=== PATIENT | male | born 1980 | race Caucasian/White ===

== ENCOUNTER 2020-04-16 13:30 | Emergency (ER) | payer OTHER ==
[~2020-04-16] VITALS: Ht 175.3 cm; Wt 85.0 kg
[2020-04-16 14:15] LABS: BASO # 0.1 x10^3/uL (0.0-0.2); BASO % 1 % (0-3); EOS # 0.1 x10^3/uL (0.0-0.7); EOS % 2 % (0-3); HEMATOCRIT 43.7 % (39.0-53.0); HEMOGLOBIN 14.6 g/dL (13.0-17.5); LYMPH # 1.5 x10^3/uL (1.0-4.8); LYMPH % 24 % (24-48); MEAN CORPUSCULAR HEMOGLOBIN 27 pg (25-35); MEAN CORPUSCULAR HGB CONC 34 g/dL (31-37); MEAN CORPUSCULAR VOLUME 82 fL (79-100); MONO # 0.9 x10^3/uL (0.0-1.1); MONO % 14 % (0-9); NEUT # 3.8 x10^3/uL (1.8-7.7); NEUT % 59 % (31-73); PLATELET COUNT 259 x10^3/uL (140-400); RED BLOOD COUNT 5.33 x10^6/uL (4.30-5.70); WHITE BLOOD COUNT 6.3 x10^3/uL (4.0-11.0)
[2020-04-16 14:24] LABS: PROTHROMBIN TIME PATIENT 12.9 SEC (11.7-14.0)
--- NOTE | 2020-04-16 14:26 | RAD ---
EXAM: PORTABLE CHEST 1V 04/16/2020 2:04 PM CLINICAL INDICATION:Right-sided numbness COMPARISON:None TECHNIQUE:AP upright view of the chest. FINDINGS:The heart and mediastinum are normal. Lungs are well-expanded and clear. No consolidation, pleural effusion, or pneumothorax. No pulmonary edema. No acute osseous abnormality. IMPRESSION: Normal chest radiograph. Electronically signed by: Kavita Bowman MD (04/16/2020 2:23 PM) [id number]
[2020-04-16 14:27] LABS: CALCIUM 9.5 mg/dL (8.5-10.1); CREATININE 1.2 mg/dL (0.7-1.3); GFR 67.8; POTASSIUM 4.2 mmol/L (3.5-5.1)
[2020-04-16 14:32] LABS: ALBUMIN 4.2 g/dL (3.4-5.0); ALBUMIN/GLOBULIN RATIO 1.1 (1.0-1.7); TOTAL BILIRUBIN 0.3 mg/dL (0.2-1.0); TOTAL PROTEIN 7.9 g/dL (6.4-8.2)
--- NOTE | 2020-04-16 14:35 | EKG ---
[facility] [address] [place] [address] Test Date: 2020-04-16 Test Time: 13:45:30 Pat Name: KENISHA AVILA Department: Room: Gender: M Senior Solutions Engineer: : 1980 Requested By: ROSE MARY MICHEL Order Number: [id number] Reading MD: Saul Weston MD Measurements Intervals [place] Rate: 70 P: AL: QRS: 51 QRSD: 96 T: 53 QT: 350 QTc: 380 Interpretive Statements SR Electronically Signed On 04-17-2020 14:41:23 CDT by Saul Weston MD
--- NOTE | 2020-04-16 15:04 | RAD ---
CT HEAD WO CONTRAST Date: 04/16/2020 2:04 PM Clinical Indication: Reason: right sided numbness Comparison: None. Technique: 5 mm axial tomographic images were obtained of the head without contrast. These were viewed on brain and bone windows. One or more of the following dose reduction techniques were utilized: Automated exposure control (AEC), Adjustment of mA and/or kV according to patient size, Use of iterative reconstruction technique such as ASiR, CT scan done according to ALARA and image gently/image wisely Findings: The brain parenchyma is normal in attenuation. No intra- or extra-axial mass or fluid collection. No acute hemorrhage. The ventricles are normal in size, shape, and morphology. The vital-white matter junction is normal. The subarachnoid cisterns are patent. The visualized paranasal sinuses are normal. The visualized portions of the orbits and globes are normal. The mastoid air cells are clear. The assembler sandal parts topogram shows no lytic lesion or fracture. Impression: No acute intracranial process. Electronically signed by: Graham Yan MD (04/16/2020 3:01 PM) [id number]
[2020-04-16 15:13] LABS: BILIRUBIN,URINE NEGATIVE (NEG); CLARITY,URINE CLEAR; COLOR,URINE YELLOW; NITRITE,URINE NEGATIVE (NEG); PROTEIN,URINE NEGATIVE (NEG-TRACE); UROBILINOGEN,URINE 0.2 mg/dL (0.2 mg/dL)
[2020-04-16 15:18] LABS: BACTERIA,URINE 0 /HPF (0-FEW); RBC,URINE 0 /HPF (0-2); WBC,URINE 0 /HPF (0-4)
[2020-04-16 15:19] LABS: BARBITURATES NEG (NEG); BENZODIAZEPINES NEG (NEG); CANNABINOIDS NEG (NEG); COCAINE NEG (NEG); METHADONE NEG (NEG); OPIATES NEG (NEG); PHENCYCLIDINE NEG (NEG)
[2020-04-16 15:21] LABS: AMPHETAMINE/METHAMPHETAMINE NEG (NEG)
[2020-04-16] MEDS ORDERED: methylPREDNISolone SOD SUCC PF 125 MG/2 ML VIAL. IV ONE (15:45)
[2020-04-16] MEDS ORDERED: ACYCLOVIR 200 MG CAPSULE. PO SCH (15:45)
[2020-04-16] MEDS ORDERED: POLY15DR27 RIGHTEYE (16:02)
[2020-04-16] MEDS ORDERED: PRED-220 PO (16:02)
[2020-04-16] MEDS ORDERED: ACYC400T PO (16:02)
--- NOTE | 2020-04-16 16:02 | PHYS DOC ---
Past Medical History Past Medical History: No Pertinent History Past Surgical History: Other Additional Past Surgical Histo: L hand surgery Smoking Status: Never Smoker Alcohol Use: None General Adult EDM: Chief Complaint: NEURO SYMPTOMS/DEFICITS HPI: HPI: Patient is a 39 year old male with no significant medical history currently at [facility] who presents to the ED today complaining of right facial droop. Patient reports approximately 3 days ago he developed a mild right-sided intermittent throbbing headache, he states eventually the headache became constant today. He states this morning he was having breakfast and he noted the right side of his face was not feeling right he does not know the exact time. He states he decided to go back and take a nap, he does not remember how long he slept but when he woke up to brush his teeth he felt water was running the right side of the mouth due to drooling. Patient states his right ear was also ringing. He states he has no recollection if he has had any coughing or congestion. He is currently being guarded with 2 correctional officers. Review of Systems: Review of Systems: Constitutional: Denies fever or chills. [] Eyes: Denies change in visual acuity. [] HENT: Denies nasal congestion or sore throat. [] Respiratory: Denies cough or shortness of breath. [] Cardiovascular: Denies chest pain or edema. [] GI: Denies abdominal pain, nausea, vomiting, bloody stools or diarrhea. [] : Denies dysuria. [] Musculoskeletal: Denies back pain or joint pain. [] Integument: Denies rash. [] Neurologic: Reports headache and right facial drop. Denies focal weakness or sensory changes. [] Endocrine: Denies polyuria or polydipsia. [] Lymphatic: Denies swollen glands. [] Psychiatric: Denies depression or anxiety. [] Heart Score: Risk Factors: Risk Factors: DM, Current or recent (<one month) smoker, HTN, HLP, family history of CAD, obesity. Risk Scores: Score 0 - 3: 2.5% MACE over next 6 weeks - Discharge Home Score 4 - 6: 20.3% MACE over next 6 weeks - Admit for Clinical Observation Score 7 - 10: 72.7% MACE over next 6 weeks - Early Invasive Strategies Current Medications: Current Medications Medications (Trade) Dose Ordered Sig/Kenzie Start Time Stop Time Status Last Admin Dose Admin Acyclovir (Zovirax) 800 mg 1X 04/16/20 15:45 UNV Methylprednisolone Sodium Succinate (SOLU-Medrol 125MG VIAL) 125 mg 1X ONCE 04/16/20 15:45 04/16/20 15:46 UNV Physical Exam: PE: Constitutional: Well developed, well nourished, no acute distress, non-toxic appearance. [] HENT: Normocephalic, atraumatic, bilateral external ears normal, oropharynx moist, no oral exudates, nose normal. [] Eyes: PERRLA, EOMI, conjunctiva normal, no discharge. [] Neck: Normal range of motion, no tenderness, supple, no stridor. [] Cardiovascular:Heart rate regular rhythm, no murmur [] Lungs & Thorax: Bilateral breath sounds clear to auscultation [] Abdomen: Bowel sounds normal, soft, no tenderness, no masses, no pulsatile masses. [] Skin: Warm, dry, no erythema, no rash. [] Back: No tenderness, no CVA tenderness. [] Extremities: No tenderness, no cyanosis, no clubbing, ROM intact, no edema. [] Neurologic: Alert and oriented X 3, normal motor function, normal sensory function, no focal deficits noted. Cranial nerves II through XII intact. Slightly decreased sensation to the right cheek. Psychologic: Affect normal, judgement normal, mood normal. [] Current Patient Data: Labs: Laboratory Tests Test 04/16/20 13:41 04/16/20 13:47 04/16/20 15:02 Glucose (Fingerstick) 61 mg/dL (70-99) L White Blood Count 6.3 x10^3/uL (4.0-11.0) Red Blood Count 5.33 x10^6/uL (4.30-5.70) Hemoglobin 14.6 g/dL (13.0-17.5) Hematocrit 43.7 % (39.0-53.0) Mean Corpuscular Volume 82 fL (79-100) Mean Corpuscular Hemoglobin 27 pg (25-35) Mean Corpuscular Hemoglobin Concent 34 g/dL (31-37) Red Cell Distribution Width 15.0 % (11.5-14.5) H Platelet Count 259 x10^3/uL (140-400) Neutrophils (%) (Auto) 59 % (31-73) Lymphocytes (%) (Auto) 24 % (24-48) Monocytes (%) (Auto) 14 % (0-9) H Eosinophils (%) (Auto) 2 % (0-3) Basophils (%) (Auto) 1 % (0-3) Neutrophils # (Auto) 3.8 x10^3/uL (1.8-7.7) Lymphocytes # (Auto) 1.5 x10^3/uL (1.0-4.8) Monocytes # (Auto) 0.9 x10^3/uL (0.0-1.1) Eosinophils # (Auto) 0.1 x10^3/uL (0.0-0.7) Basophils # (Auto) 0.1 x10^3/uL (0.0-0.2) Prothrombin Time 12.9 SEC (11.7-14.0) Prothrombin Time INR 1.0 (0.8-1.1) Activated Partial Thromboplast Time 27 SEC (24-38) Sodium Level 139 mmol/L (136-145) Potassium Level 4.2 mmol/L (3.5-5.1) Chloride Level 100 mmol/L (98-107) Carbon Dioxide Level 32 mmol/L (21-32) Anion Gap 7 (6-14) Blood Urea Nitrogen 11 mg/dL (8-26) Creatinine 1.2 mg/dL (0.7-1.3) Estimated GFR (Cockcroft-Gault) 67.8 BUN/Creatinine Ratio 9 (6-20) Glucose Level 99 mg/dL (70-99) Calcium Level 9.5 mg/dL (8.5-10.1) Magnesium Level 2.0 mg/dL (1.8-2.4) Total Bilirubin 0.3 mg/dL (0.2-1.0) Aspartate Amino Transferase (AST) 22 U/L (15-37) Alanine Aminotransferase (ALT) 52 U/L (16-63) Alkaline Phosphatase 72 U/L (46-116) Creatine Kinase 380 U/L (39-308) H Creatine Kinase MB (Mass) 0.9 ng/mL (0.0-3.6) Creatine Kinase MB Relative Index 0.2 % (0-4) Troponin I Quantitative < 0.017 ng/mL (0.000-0.055) VB-Uug-A-Type Natriuretic Peptide 9 pg/mL (0-124) Total Protein 7.9 g/dL (6.4-8.2) Albumin 4.2 g/dL (3.4-5.0) Albumin/Globulin Ratio 1.1 (1.0-1.7) Thyroid Stimulating Hormone (TSH) 0.881 uIU/mL (0.358-3.74) Urine Collection Type Unknown Urine Color Yellow Urine Clarity Clear Urine pH 6.0 (<5.0-8.0) Urine Specific Jal 1.010 (1.000-1.030) Urine Protein Negative mg/dL (NEG-TRACE) Urine Glucose (UA) Negative mg/dL (NEG) Urine Ketones (Stick) Negative mg/dL (NEG) Urine Blood Negative (NEG) Urine Nitrite Negative (NEG) Urine Bilirubin Negative (NEG) Urine Urobilinogen Dipstick 0.2 mg/dL (0.2 mg/dL) Urine Leukocyte Esterase Negative (NEG) Urine RBC 0 /HPF (0-2) Urine WBC 0 /HPF (0-4) Urine Bacteria 0 /HPF (0-FEW) Urine Opiates Screen Neg (NEG) Urine Methadone Screen Neg (NEG) Urine Barbiturates Neg (NEG) Urine Phencyclidine Screen Neg (NEG) Urine Amphetamine/Methamphetamine Neg (NEG) Urine Benzodiazepines Screen Neg (NEG) Urine Cocaine Screen Neg (NEG) Urine Cannabinoids Screen Neg (NEG) Urine Ethyl Alcohol Neg (NEG) Laboratory Tests 04/16/20 13:47 Laboratory Tests 04/16/20 13:47 Vital Signs: Vital Signs Date Time Temp Pulse Resp B/P (MAP) Pulse Ox O2 Delivery O2 Flow Rate FiO2 04/16/20 13:40 98.9 87 16 138/86 (103) 98 Room Air 98.9 EKG: EKG: [] Radiology/Procedures: Radiology/Procedures: []PROCEDURE: PORTABLE CHEST 1V EXAM: PORTABLE CHEST 1V 04/16/2020 2:04 PM CLINICAL INDICATION:Right-sided numbness COMPARISON:None TECHNIQUE:AP upright view of the chest. FINDINGS:The heart and mediastinum are normal. Lungs are well-expanded and clear. No consolidation, pleural effusion, or pneumothorax. No pulmonary edema. No acute osseous abnormality. IMPRESSION: Normal chest radiograph. Electronically signed by: Kavita Bowman MD (04/16/2020 2:23 PM) [id number] DICTATED and SIGNED BY: KAVITA BOWMAN MD DATE: 04/16/20 1423 PROCEDURE: CT HEAD WO CONTRAST CT HEAD WO CONTRAST Date: 04/16/2020 2:04 PM Clinical Indication: Reason: right sided numbness Comparison: None. Technique: 5 mm axial tomographic images were obtained of the head without contrast. These were viewed on brain and bone windows. One or more of the following dose reduction techniques were utilized: Automated exposure control (AEC), Adjustment of mA and/or kV according to patient size, Use of iterative reconstruction technique such as ASiR, CT scan done according to ALARA and image gently/image wisely Findings: The brain parenchyma is normal in attenuation. No intra- or extra-axial mass or fluid collection. No acute hemorrhage. The ventricles are normal in size, shape, and morphology. The vital-white matter junction is normal. The subarachnoid cisterns are patent. The visualized paranasal sinuses are normal. The visualized portions of the orbits and globes are normal. The mastoid air cells are clear. The log sawyer topogram shows no lytic lesion or fracture. Impression: No acute intracranial process. Electronically signed by: Randall Yan MD (04/16/2020 3:01 PM) [id number] DICTATED and SIGNED BY: RANDALL YAN MD DATE: 04/16/20 1501 Course & Med Decision Making: Course & Med Decision Making Pertinent Labs and Imaging studies reviewed. (See chart for details) This is a 39-year-old male patient presenting to the ED today from [facility] complaining of facial droop to the right that began at unknown time this morning. Also complaining of a headache for [address] of the head is negative. Stroke scale is 2. Labs are negative for any acute findings, blood pressure is good. 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 He tolerated the swallow study. He was given Solu-Medrol in the ED and acyclovir. Discharged on prednisone, acyclovir and artificial tears. F/u with neurology in the course of this week Amilcar Disclaimer: Amilcar Disclaimer: This electronic medical record was generated, in whole or in part, using a voice recognition dictation system. NIHSS Stroke Scale NIH Stroke Scale: NIH Stroke Scale Response (Comments) Value Level of Consciousness: 0 Alert/Responsive 0 LOC Questions: 0 Answers both correctly 0 Best Gaze: 0 Normal 0 Visual: 0 No visual loss 0 Facial Palsy: 2 Partial paralysis 2 Motor - Left Arm 0 No drift 0 Motor - Right Arm 0 No drift 0 Motor - Left Leg 0 No drift 0 Motor: Right Leg 0 No drift 0 Limb Ataxia: 0 Absent 0 Sensory: 0 No loss 0 Best Language: 0 Normal 0 Dysathria: 0 Normal 0 Total 2 Departure Departure Impression: Primary Impression: Ly palsy Disposition: HOME, SELF-CARE Condition: STABLE Referrals: NO PCP (PCP) NICHOLAS DUARTE MD follow up in 1 week Patient Instructions: Ly's Palsy Additional Instructions: Your CAT scan of the head is negative for any acute findings, your symptoms are more in line with Ly's palsy. Take the prescribed medications as ordered. Follow-up with the provided neurologist and your primary care doctor in the next 7 days. Scripts Polyvinyl Alcohol (ARTIFICIAL TEARS) 15 Ml Drops 1 DROP RIGHTEYE QID, #15 ML 0 Refills Prov: ROSE MARY MICHEL APRN 04/16/20 Acyclovir (ACYCLOVIR) 400 Mg Tablet 1 TAB PO 5XDAY, #50 TAB 3 Refills Prov: ROSE MARY MICHEL APRN 04/16/20 Prednisone (PREDNISONE ) 10 Mg Tablet 1 TAB PO DAILY, #10 TAB 0 Refills 60mg daily for 5 days then 25 mg BID for 10 days Prov: ROSE MARY MICHEL APRN 04/16/20 ROSE MARY MICHEL APRN April 16, 2020 16:02
[2020-04-16 16:34] VITALS: BP 146/70
== END 2020-04-16 16:57 | disposition home or self-care (01) ==
LOC: EEVIPCON 13:30 → ER 13:30
DX: G51.0 Bell's palsy (principal)
CPT/HCPCS: 36415; 70450; 71045; 80053; 80307; 81001; 82553; 82962; 83735; 83880; 84443; 84484; 85025; 85027; 85610; 85730; 93005; 96374; 99285; J2930